=== PATIENT | male | born 1990 | race American Indian/Alaskan Native ===

== ENCOUNTER 2018-06-14 15:23 | Emergency (ER) | payer OTHER ==
[2018-06-14 16:00] VITALS: BP 134/86
[2018-06-14] MEDS ORDERED: IBUPROFEN PO ONE (17:49)
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
== END 2018-06-14 19:05 | disposition home or self-care (01) ==
LOC: ED 15:23
DX: S13.4XXA Sprain of ligaments of cervical spine, initial encounter (principal); F17.200 Nicotine dependence, unspecified, uncomplicated; F12.10 Cannabis abuse, uncomplicated; V89.2XXA Person injured in unspecified motor-vehicle accident, traffic, initial encounter; Y93.89 Activity, other specified; Y99.8 Other external cause status; Y92.410 Unspecified street and highway as the place of occurrence of the external cause
CPT/HCPCS: 72040; 99283

== ENCOUNTER 2018-07-25 17:40 | Emergency (ER) | payer OTHER ==
[2018-07-25 18:01] VITALS: BP 143/97
--- NOTE | 2018-07-25 18:15 | Emergency Department Report ---
Blank Doc - Documentation Documentation: This is a 28 y.o. male that presents with a bald spot to occipital scalp x 3 m onths. The spot started out small and increased over time. He denies pain. This initial assessment diagnostic orders/clinical plan/treatment(s) is/are subject to change based on patient's health status, clinical progression and re- assessment by fellow clinical providers in the ED. Further treatment and workup at subsequent clinical providers discretion. Patient/guardians urged not to elope from ED s their condition may be serious if not clinically assessed and managed. Initial orders include: Fast track for further evaluation.
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
== END 2018-07-25 21:42 | disposition home or self-care (01) ==
LOC: ED 17:40
DX: B35.0 Tinea barbae and tinea capitis (principal); L63.9 Alopecia areata, unspecified; F17.200 Nicotine dependence, unspecified, uncomplicated
CPT/HCPCS: 99282